=== PATIENT | male | born 1980 | race African-American/Black ===

== ENCOUNTER 2018-05-09 16:40 | Inpatient (IN) | payer BC, OTHER ==
[~2018-05-09] VITALS: Ht 172.7 cm; Wt 98.9 kg
[2018-05-09] MEDS ORDERED: MAG HYDROX/AL HYDROX/SIMETH 30 ML LIQUID UDC PO PRN (17:15)
[2018-05-09] MEDS ORDERED: LOPERAMIDE HCL 2 MG CAPSULE PO PRN ×2 (17:15)
[2018-05-09] MEDS ORDERED: DIAZEPAM 10 MG TABLET PO PRN (17:15)
[2018-05-09] MEDS ORDERED: ONDANSETRON 4 MG/2 ML VIAL IM PRN (17:15)
[2018-05-09] MEDS ORDERED: DIAZEPAM 5 MG TABLET PO PRN (17:15)
[2018-05-09] MEDS ORDERED: MIRALAX 17 GM POWD.PACK PO PRN (17:15)
[2018-05-09] MEDS ORDERED: MAGNESIUM HYDROXIDE 30 ML LIQUID UDC PO PRN (17:15)
[2018-05-09] MEDS ORDERED: THIAMINE HCL 200 MG/2 ML VIAL IM ONE (17:15)
[2018-05-09] MEDS ORDERED: 5 DAY TAPER VALIUM-SERENITY PROTOCOL PO PRN (17:15)
[2018-05-09] MEDS ORDERED: LORAZEPAM 2 MG/1 ML VIAL IM PRN (17:15)
[2018-05-09 17:48] LABS: *AMPHETAMINE, URINE NEGATIVE (NEGATIVE); *BARBITURATE, URINE NEGATIVE (NEGATIVE); *CANNABINOID, URINE NEGATIVE (NEGATIVE); *COCCAINE, URINE NEGATIVE (NEGATIVE); *OPIATE, URINE NEGATIVE (NEGATIVE); *PHENCYCLIDINE SCREEN,URINE NEGATIVE (NEGATIVE)
[2018-05-09] MEDS ORDERED: CARV12.52 PO (17:51)
[2018-05-09] MEDS ORDERED: OXYM15MI4 NS (17:53)
[2018-05-09 18:34] LABS: BASOPHILS # (AUTO) 0.1 K/uL (0.0-8.0); BASOPHILS % (AUTO) 0.9 % (0.0-2.0); EOSINOPHILS % (AUTO) 0.4 % (0.0-7.0); HEMATOCRIT 46.6 % (36.7-47.1); HEMOGLOBIN 15.7 g/dL (12.5-16.3); LYMPHOCYTES # (AUTO) 1.9 K/uL (20.0-40.0); MEAN CORPUSCULAR HEMOGLOBIN 28.3 uug (23.8-33.4); MEAN CORPUSCULAR HGB CONC 34 g/dL (32.5-36.3); MEAN CORPUSCULAR VOLUME 84.4 fL (73.0-96.2); MONOCYTES # (AUTO) 0.4 K/uL (2.0-10.0); MONOCYTES % (AUTO) 5.9 % (0.0-11.0); NEUTROPHILS # (AUTO) 4.4 K/uL (1.8-8.9); NEUTROPHILS % (AUTO) 64.8 % (38.5-71.5); PLATELET COUNT (AUTO) 295 K/uL (152-348); RED BLOOD CELL COUNT(AUTO) 5.52 MIL/uL (4.06-5.63); WHITE BLOOD COUNT (AUTO) 6.8 K/uL (3.6-10.2)
[2018-05-09 18:49] LABS: BILIRUBIN,TOTAL 0.7 mg/dL (0.2-1.0); CREATININE 0.9 mg/dL (0.6-1.3); MAGNESIUM 2.1 mg/dL (1.8-2.4); POTASSIUM 3.9 mmol/L (3.5-5.1); TOTAL PROTEIN, SERUM 8.2 g/dL (6.4-8.2)
[2018-05-09 20:00] VITALS: BP 136/85
[2018-05-09] MEDS: DIAZEPAM 10 MG TABLET PO PRN (20:21)
[2018-05-09] MEDS: diphenhydrAMINE 50 MG CAPSULE PO PRN (20:21)
[2018-05-09] MEDS: CARVEDILOL 12.5 MG TABLET PO SCH (20:34)
[2018-05-09] MEDS: ONDANSETRON ODT 4 MG TAB.RAPDIS SL PRN (21:14)
[2018-05-09] MEDS: OXYMETAZOLINE NS PRN (21:15)
[2018-05-10] VITALS: BP 127/78
[2018-05-10 04:00] VITALS: BP 94/57
[2018-05-10] MEDS: IBUPROFEN 600 MG TABLET PO PRN ×2 (08:23→15:09)
[2018-05-10] MEDS: FOLIC ACID 1 MG TABLET PO SCH (08:23)
[2018-05-10] MEDS: ONDANSETRON ODT 4 MG TAB.RAPDIS SL PRN ×2 (08:23→15:10)
[2018-05-10] MEDS: MULTIVITAMINS,THERAPEUTIC TABLET PO SCH (08:23)
[2018-05-10] MEDS: THIAMINE HCL 100 MG TABLET PO SCH (08:23)
[2018-05-10] MEDS: DIAZEPAM 10 MG TABLET PO SCH ×4 (08:24→20:13)
[2018-05-10] MEDS: CARVEDILOL 12.5 MG TABLET PO SCH ×2 (08:27→17:36)
[2018-05-10] MEDS ORDERED: DICYCLOMINE HCL 10 MG CAPSULE PO PRN (08:30)
[2018-05-10 08:40] VITALS: BP 140/96
[2018-05-10] MEDS ORDERED: TUBERCULIN,PURIF.PROT.DERIV. 5 TU/0.1 ML TEST ID ONE (09:00)
[2018-05-10] MEDS: OXYMETAZOLINE NS PRN (10:32)
[2018-05-10] MEDS: DIAZEPAM 10 MG TABLET PO PRN (10:52)
[2018-05-10] MEDS: CLONIDINE HCL 0.1 MG TABLET PO PRN ×2 (11:02→20:14)
[2018-05-10 12:31] VITALS: BP 141/86
[2018-05-10] MEDS ORDERED: OXYMETAZOLINE NASAL SPRAY NS PRN (13:15)
[2018-05-10] MEDS: ACETAMINOPHEN 325 MG TABLET PO PRN (15:09)
[2018-05-10] MEDS ORDERED: METHOCARBAMOL 750 MG TABLET PO PRN (15:15)
[2018-05-10 16:10] VITALS: BP 146/85
[2018-05-10 20:00] VITALS: BP 147/88
[2018-05-10] MEDS: diphenhydrAMINE 50 MG CAPSULE PO PRN (20:14)
[2018-05-10] MEDS: OXYMETAZOLINE NASAL 0.05% 15 ML SPRAY NS PRN (20:15)
[2018-05-10] MEDS ORDERED: DIAZEPAM 10 MG TABLET PO PRN ×2 (20:45)
[2018-05-10] MEDS ORDERED: DIAZEPAM 5 MG TABLET PO PRN (20:45)
[2018-05-11] VITALS: BP 132/82
[2018-05-11 04:00] VITALS: BP 132/79
[2018-05-11] MEDS: OXYMETAZOLINE NASAL 0.05% 15 ML SPRAY NS PRN ×4 (04:31→16:25)
[2018-05-11 06:06] LABS: HEPATITIS B SURFACE AG Negative (Negative)
[2018-05-11 08:02] VITALS: BP 126/83
[2018-05-11] MEDS: MULTIVITAMINS,THERAPEUTIC TABLET PO SCH (09:04)
[2018-05-11] MEDS: THIAMINE HCL 100 MG TABLET PO SCH (09:04)
[2018-05-11] MEDS: DIAZEPAM 10 MG TABLET PO SCH ×3 (09:04→21:06)
[2018-05-11] MEDS: CARVEDILOL 12.5 MG TABLET PO SCH ×2 (09:05→17:09)
[2018-05-11] MEDS: FOLIC ACID 1 MG TABLET PO SCH (09:05)
[2018-05-11 12:00] VITALS: BP 132/95
[2018-05-11 13:15] LABS: BILIRUBIN,TOTAL 0.9 mg/dL (0.2-1.0); POTASSIUM 3.7 mmol/L (3.5-5.1); TOTAL PROTEIN, SERUM 7.6 g/dL (6.4-8.2)
[2018-05-11 16:00] VITALS: BP 141/106
[2018-05-11 20:00] VITALS: BP 129/80
[2018-05-11] MEDS: ONDANSETRON ODT 4 MG TAB.RAPDIS SL PRN (20:25)
[2018-05-11] MEDS: TRAZODONE 50 MG TABLET PO PRN (21:06)
[2018-05-12] VITALS: BP 138/83
[2018-05-12 08:15] LABS: ALANINE AMINOTRANSFERASE 229 U/L (16-63); ALKALINE PHOSPHATASE 71 U/L (50-136); AMYLASE 35 U/L (25-115); ASPARTATE AMINOTRANSFERASE 179 U/L (15-37); BILIRUBIN,DIRECT 0.2 mg/dL (0.0-0.2); BILIRUBIN,TOTAL 0.8 mg/dL (0.2-1.0); CARBON DIOXIDE 28 mmol/L (21-32); CHLORIDE 101 mmol/L (98-107); CREATININE 0.7 mg/dL (0.6-1.3); GLUCOSE 96 mg/dL (74-106); LIPASE 349 U/L (73-393); TOTAL PROTEIN, SERUM 7.1 g/dL (6.4-8.2); UREA NITROGEN, BLOOD 6 mg/dL (7-18)
[2018-05-12 08:17] VITALS: BP 111/77
[2018-05-12] MEDS ORDERED: POTASSIUM CHLORIDE 20 MEQ TAB.PRT.SR PO ONE (09:00)
[2018-05-12] MEDS: MULTIVITAMINS,THERAPEUTIC TABLET PO SCH (09:22)
[2018-05-12] MEDS: THIAMINE HCL 100 MG TABLET PO SCH (09:22)
[2018-05-12] MEDS: FOLIC ACID 1 MG TABLET PO SCH (09:22)
[2018-05-12] MEDS: CARVEDILOL 12.5 MG TABLET PO SCH ×2 (09:22→16:38)
[2018-05-12] MEDS: DIAZEPAM 5 MG TABLET PO SCH ×4 (09:22→21:37)
[2018-05-12] MEDS: OXYMETAZOLINE NASAL 0.05% 15 ML SPRAY NS PRN ×3 (09:24→22:01)
[2018-05-12] MEDS: CLONIDINE HCL 0.1 MG TABLET PO PRN ×2 (12:09→20:27)
[2018-05-12 12:41] VITALS: BP 149/108
[2018-05-12 16:40] VITALS: BP 149/106
[2018-05-12 20:00] VITALS: BP 142/110
[2018-05-12] MEDS: IBUPROFEN 600 MG TABLET PO PRN (20:27)
[2018-05-12] MEDS: TRAZODONE 50 MG TABLET PO PRN (21:37)
[2018-05-13] VITALS: BP 118/79
[2018-05-13 04:00] VITALS: BP 95/60
[2018-05-13 08:00] VITALS: BP 107/71
[2018-05-13 08:28] LABS: ALANINE AMINOTRANSFERASE 280 U/L (16-63); ALKALINE PHOSPHATASE 71 U/L (50-136); ASPARTATE AMINOTRANSFERASE 193 U/L (15-37); BILIRUBIN,DIRECT 0.2 mg/dL (0.0-0.2); BILIRUBIN,TOTAL 0.6 mg/dL (0.2-1.0); CARBON DIOXIDE 28 mmol/L (21-32); CHLORIDE 101 mmol/L (98-107); CREATININE 0.8 mg/dL (0.6-1.3); GLUCOSE 126 mg/dL (74-106); MAGNESIUM 1.9 mg/dL (1.8-2.4); TOTAL PROTEIN, SERUM 6.9 g/dL (6.4-8.2); UREA NITROGEN, BLOOD 5 mg/dL (7-18)
[2018-05-13] MEDS ORDERED: POTASSIUM CHLORIDE 20 MEQ TAB.PRT.SR PO ONE (09:00)
[2018-05-13] MEDS: CARVEDILOL 12.5 MG TABLET PO SCH ×2 (09:07→16:56)
[2018-05-13] MEDS: MULTIVITAMINS,THERAPEUTIC TABLET PO SCH (09:07)
[2018-05-13] MEDS: FOLIC ACID 1 MG TABLET PO SCH (09:07)
[2018-05-13] MEDS: THIAMINE HCL 100 MG TABLET PO SCH (09:07)
[2018-05-13] MEDS: DIAZEPAM 5 MG TABLET PO SCH ×3 (09:07→21:19)
[2018-05-13] MEDS: OXYMETAZOLINE NASAL 0.05% 15 ML SPRAY NS PRN ×3 (09:08→21:20)
[2018-05-13 12:00] VITALS: BP 145/103
[2018-05-13] MEDS: ONDANSETRON ODT 4 MG TAB.RAPDIS SL PRN (15:06)
[2018-05-13 16:00] VITALS: BP 121/96
[2018-05-13] MEDS: busPIRone 5 MG TABLET PO SCH (16:56)
[2018-05-13 20:00] VITALS: BP 136/102
[2018-05-13] MEDS: TRAZODONE 50 MG TABLET PO PRN (21:20)
[2018-05-13] MEDS: CLONIDINE HCL 0.1 MG TABLET PO PRN (21:20)
[2018-05-14] VITALS: BP 101/73
[2018-05-14 04:00] VITALS: BP 109/69
[2018-05-14 08:00] VITALS: BP 93/66
[2018-05-14] MEDS: THIAMINE HCL 100 MG TABLET PO SCH (08:33)
[2018-05-14] MEDS: FOLIC ACID 1 MG TABLET PO SCH (08:33)
[2018-05-14] MEDS: MULTIVITAMINS,THERAPEUTIC TABLET PO SCH (08:33)
[2018-05-14] MEDS: OXYMETAZOLINE NASAL 0.05% 15 ML SPRAY NS PRN ×3 (08:34→22:26)
[2018-05-14] MEDS: DIAZEPAM 5 MG TABLET PO SCH ×2 (08:34→21:37)
[2018-05-14] MEDS: CARVEDILOL 12.5 MG TABLET PO SCH ×2 (08:45→16:51)
[2018-05-14] MEDS: busPIRone 5 MG TABLET PO SCH ×2 (08:45→12:40)
[2018-05-14 09:00] LABS: BILIRUBIN,TOTAL 0.4 mg/dL (0.2-1.0); CREATININE 0.9 mg/dL (0.6-1.3); POTASSIUM 3.6 mmol/L (3.5-5.1); TOTAL PROTEIN, SERUM 6.8 g/dL (6.4-8.2)
[2018-05-14 12:00] VITALS: BP 132/90
[2018-05-14 16:00] VITALS: BP 148/99
[2018-05-14] MEDS: busPIRone 10 MG TABLET PO SCH (16:50)
[2018-05-14] MEDS ORDERED: busPIRone 5 MG TABLET PO SCH (17:00)
[2018-05-14 20:00] VITALS: BP 132/99
[2018-05-14] MEDS: TRAZODONE 50 MG TABLET PO PRN (21:37)
[2018-05-15] VITALS: BP 129/89
[2018-05-15 04:00] VITALS: BP 131/80
[2018-05-15 08:00] VITALS: BP 115/81
[2018-05-15] MEDS: busPIRone 10 MG TABLET PO SCH ×3 (08:24→16:35)
[2018-05-15] MEDS: MULTIVITAMINS,THERAPEUTIC TABLET PO SCH (08:24)
[2018-05-15] MEDS: FOLIC ACID 1 MG TABLET PO SCH (08:24)
[2018-05-15] MEDS: CARVEDILOL 12.5 MG TABLET PO SCH ×2 (08:24→16:35)
[2018-05-15] MEDS: THIAMINE HCL 100 MG TABLET PO SCH (08:24)
[2018-05-15 12:00] VITALS: BP 140/96
[2018-05-15 16:00] VITALS: BP 142/98
[2018-05-15] MEDS: OXYMETAZOLINE NASAL 0.05% 15 ML SPRAY NS PRN ×2 (16:38→21:32)
[2018-05-15] MEDS: ACETAMINOPHEN 325 MG TABLET PO PRN (19:33)
[2018-05-15] MEDS: CLONIDINE HCL 0.1 MG TABLET PO PRN (19:34)
[2018-05-15 20:00] VITALS: BP 137/103
[2018-05-15] MEDS ORDERED: TRAZ-213 PO (20:41)
[2018-05-15] MEDS ORDERED: OXYM-35 NS (20:41)
[2018-05-15] MEDS ORDERED: BUSP10TA3 PO (20:41)
[2018-05-15] MEDS: TRAZODONE 50 MG TABLET PO PRN (21:30)
[2018-05-16] VITALS: BP 128/96
[2018-05-16 04:00] VITALS: BP 125/80
[2018-05-16 08:00] VITALS: BP 100/63
[2018-05-16 08:15] VITALS: BP 100/63
[2018-05-16] MEDS: OXYMETAZOLINE NASAL 0.05% 15 ML SPRAY NS PRN (08:15)
[2018-05-16] MEDS: THIAMINE HCL 100 MG TABLET PO SCH (08:15)
[2018-05-16] MEDS: CARVEDILOL 12.5 MG TABLET PO SCH (08:15)
[2018-05-16] MEDS: busPIRone 10 MG TABLET PO SCH (08:15)
[2018-05-16] MEDS: MULTIVITAMINS,THERAPEUTIC TABLET PO SCH (08:15)
[2018-05-16] MEDS: FOLIC ACID 1 MG TABLET PO SCH (09:34)
== END 2018-05-16 09:29 | disposition other institution (70) | DRG 895 ==
LOC: SRC 16:40
PROVIDERS: ADMIT Family Medicine Addiction Medicine; ATTEND Family Medicine Addiction Medicine
PROC: HZ2ZZZZ Detoxification Services for Substance Abuse Treatment (ICD-10-PCS; principal; 2018-05-09)
PROC: HZ41ZZZ Group Counseling for Substance Abuse Treatment, Behavioral (ICD-10-PCS; 2018-05-12)
DX: F10.239 Alcohol dependence with withdrawal, unspecified (principal); F10.230 Alcohol dependence with withdrawal, uncomplicated; F17.210 Nicotine dependence, cigarettes, uncomplicated; Z81.1 Family history of alcohol abuse and dependence; J31.0 Chronic rhinitis; I10 Essential (primary) hypertension; F41.9 Anxiety disorder, unspecified; Z81.3 Family history of other psychoactive substance abuse and dependence; E87.6 Hypokalemia; F32.9 Major depressive disorder, single episode, unspecified; R74.0 Nonspecific elevation of levels of transaminase and lactic acid dehydrogenase [LDH]
CPT/HCPCS: 36415; 70030-TC; 80307; 83690; 83735; 85025; 86580; 86592; 86705; 86803; 87340; 87806; A4663; G0480; J2405; Q0162; Q0163

== ENCOUNTER 2018-08-21 19:35 | Inpatient (IN) | payer BC, OTHER ==
[~2018-08-21] VITALS: Ht 167.6 cm; Wt 99.8 kg
[~2018-08-21 19:35] MED LIST: BUSP10TA3 PO; CARV12.52 PO; OXYM-35 NS; TRAZ-213 PO
--- NOTE | 2018-08-21 21:30 | NUR ---
INTAKE ASSESSMENT BP:180/104, HR:106, RR:18, SpO2:96% Pt is stable and able to be admitted on the unit. Unit protocols regarding medications and vital signs Q4H were explained. Pt verbalized understanding. Pt noted with abrasion/open skin to left side of face. Pt reports he lost his balance and scraped his face against the wall. Denies falling, denies loss of consciousness. Pt is alert and oriented x4. Dr. Leos was notified. Will continue admission upon arrival on the unit.
[2018-08-21] MEDS ORDERED: GABA600T2 PO (21:43)
[2018-08-21] MEDS ORDERED: TRAZ-214 PO (21:43)
[2018-08-21] MEDS ORDERED: ONDA4TAB5 GT (21:43)
[2018-08-21] MEDS ORDERED: GABA-534 PO (21:43)
[2018-08-21] MEDS ORDERED: NYST15OI2 TP (21:43)
--- NOTE | 2018-08-21 22:00 | NUR ---
Admission Patient is a 38 year old male who present to [facility] for medically supervised withdrawal from ETOH- Vodka. Patient was escorted on to the unit at 2140 by male HYDROELECTRIC STATION OPERATOR where body search was conducted. Skin check rendered by male nurse with skin noted with an abrasion to left side of face. Patient was able to verbalize "I missed the step when I was drunk and hit the wall outside of my house." He explained that he did not lose consciousness and denies change in LOC. Patient is ambulatory with no assistance needed. He is noted to be anxious, restless, easily agitated, verbalizing chills and sweats, and tremulous. He is noted with heavy alcohol odor. He is noted during admission assessment to be very fidgety, anxious, racing thoughts, blunt answers and verbalizing gosh just look at me Im a mess. This isnt me. He is alert and oriented x4, speech is clear but pressured and delayed. He is noted to avoid eye contact. He reports his substance use as: 1. ETOH-VODKA: Patient verbalizes of taking his first drink over 24 years ago. He recently relapsed 6 days ago, drinking 750mls daily. He reports his last drink was 08/21/18 1800 drinking 60mls. Patient reports typical signs and symptoms of withdrawal as "shakes, sweats, vomiting, diarrhea, my stomach hurts, irritable." When asked of his current state of intoxication patient states I dont know what I feel. I feel like shit like Im starting to feel like Im hung over. Patient denies history of seizures, withdrawal induced delirium, withdrawal induced cardiac complications, overdoses, involuntary psych hospitalizations. Patient reports history of multiple blackouts and states I drink to blackout. He denies PCP or Psychiatrist. He reports past medical history of HTN and is currently taking Carvedilol 12.5mg, Anxiety and is prescribed Neurontin 600mg, Insomnia and is currently prescribed trazodone 100mg. patient denies diagnosis of depression but was noted with home medication of Wellbutrin 10mg. Patient states I was given all those meds when I was at treatment. The only one that I consistently take is my blood pressure medication. The others are just there. Patient denies suicidal ideations. He reports of multiple treatment history with the most recent to [facility] where he completed 30 days. Patient reports his recent relapse due to complications to between him and his . Patient states She was just ignoring me and it made things difficult. He also reports that his triggers consist of his consuming alcohol on a daily bases at home and with alcohol available in their home it makes the temptation greater. He states she leaves her drinks out and I just end up drinking them. Thats how all this started. Patient decided to get treatment because "I just cant keep going on like this. Look at me Im a mess. Patient goes on to report I want to be a good dad to my kids. His support system consists of his immediate family and sober friends. Consequences from his drinking include financial hardship as well as causing strain on his family and close relationships. Patient is willing to receive information on residential treatment but states Im not planning on going to residential treatment. I know what to do. I just need to do it. Vital signs rendered and noted. Breathing even and non labored. Lung sounds clear. Bowel sounds active in all quadrants. Patient follows a regular diet. No known allergies. Full code. Height noted 56. Weight 220lbs. Smoking approximately 20 cigarettes a day. Educated patient about plan of care including detox, group therapy, individual therapy, discharge planning and he was able to verbalize understanding. Admission CIWA 23. All information was relayed to CA and MD with new orders to start patient on a 5 day Valium that is set to start 08/22/18 0900. PRN medications available for increased signs and symptoms of withdrawal. Labs ordered and rendered. All needs attended to promptly. Will continue plan of care as ordered.
[2018-08-21] MEDS ORDERED: IBUPROFEN 600 MG TABLET PO PRN (22:15)
[2018-08-21] MEDS ORDERED: LOPERAMIDE HCL 2 MG CAPSULE PO PRN (22:15)
[2018-08-21] MEDS ORDERED: diphenhydrAMINE 50 MG CAPSULE PO PRN (22:15)
[2018-08-21] MEDS ORDERED: MAG HYDROX/AL HYDROX/SIMETH 30 ML LIQUID UDC PO PRN (22:15)
[2018-08-21] MEDS ORDERED: DIAZEPAM 10 MG TABLET PO PRN (22:15)
[2018-08-21] MEDS ORDERED: MAGNESIUM HYDROXIDE 30 ML LIQUID UDC PO PRN (22:15)
[2018-08-21] MEDS ORDERED: HYDROXYZINE PAMOATE 25 MG CAPSULE PO PRN (22:15)
[2018-08-21] MEDS ORDERED: ONDANSETRON 4 MG/2 ML VIAL IM PRN (22:15)
[2018-08-21] MEDS ORDERED: THIAMINE HCL 200 MG/2 ML VIAL IM ONE (22:15)
[2018-08-21] MEDS ORDERED: ONDANSETRON ODT 4 MG TAB.RAPDIS SL PRN (22:15)
[2018-08-21] MEDS ORDERED: DIAZEPAM 5 MG TABLET PO PRN (22:15)
[2018-08-21] MEDS ORDERED: LORAZEPAM 2 MG/1 ML VIAL IM PRN (22:15)
[2018-08-21 22:16] VITALS: BP 153/110
[2018-08-21] MEDS: CLONIDINE HCL 0.1 MG TABLET PO PRN (22:36)
--- NOTE | 2018-08-21 22:40 | NUR ---
PRN Medication Administration Patient is noted with increased anxiety, restlessness, agitation, chills, sweats, tremulous, light sensitivity. He is noted pacing in and out of room and frequently shifting in position. CIWA noted to be 23. PRN Clonidine administered for elevated blood pressure and Valium 20mg administered. Will continue to monitor.
[2018-08-21 23:04] LABS: BASOPHILS # (AUTO) 0.1 K/uL (0.0-8.0); BASOPHILS % (AUTO) 0.6 % (0.0-2.0); EOSINOPHILS % (AUTO) 0.2 % (0.0-7.0); HEMATOCRIT 44.7 % (36.7-47.1); HEMOGLOBIN 15.4 g/dL (12.5-16.3); LYMPHOCYTES # (AUTO) 2.4 K/uL (20.0-40.0); MEAN CORPUSCULAR HEMOGLOBIN 28.8 uug (23.8-33.4); MEAN CORPUSCULAR HGB CONC 35 g/dL (32.5-36.3); MEAN CORPUSCULAR VOLUME 83.5 fL (73.0-96.2); MONOCYTES # (AUTO) 0.8 K/uL (2.0-10.0); MONOCYTES % (AUTO) 9.6 % (0.0-11.0); NEUTROPHILS # (AUTO) 5.2 K/uL (1.8-8.9); NEUTROPHILS % (AUTO) 61.6 % (38.5-71.5); PLATELET COUNT (AUTO) 246 K/uL (152-348); RED BLOOD CELL COUNT(AUTO) 5.35 MIL/uL (4.06-5.63); WHITE BLOOD COUNT (AUTO) 8.5 K/uL (3.6-10.2)
[2018-08-21 23:18] LABS: BILIRUBIN,TOTAL 0.6 mg/dL (0.2-1.0); MAGNESIUM 1.8 mg/dL (1.8-2.4); POTASSIUM 3.6 mmol/L (3.5-5.1); TOTAL PROTEIN, SERUM 7.9 g/dL (6.4-8.2)
--- NOTE | 2018-08-21 23:40 | NUR ---
PRN Medication Reassessment patient is noted returning from smoking patio and verbalizes "Im going to go to bed." Vitals rendered and noted. PRN Clonidine and Valium 20mg noted to be effective. Will continue to monitor.
[2018-08-21 23:46] LABS: *AMPHETAMINE, URINE NEGATIVE (NEGATIVE); *BARBITURATE, URINE NEGATIVE (NEGATIVE); *CANNABINOID, URINE NEGATIVE (NEGATIVE); *COCCAINE, URINE NEGATIVE (NEGATIVE); *OPIATE, URINE NEGATIVE (NEGATIVE); *PHENCYCLIDINE SCREEN,URINE NEGATIVE (NEGATIVE)
[2018-08-21 23:51] LABS: THYROID STIMULATING HORMONE 1.143 mIU/mL (0.358-3.740)
[2018-08-22] VITALS (7 sets, daily range): BP systolic 110–151; BP diastolic 67–93
[2018-08-22] MEDS: DIAZEPAM 10 MG TABLET PO PRN ×2 (06:37→12:16)
--- NOTE | 2018-08-22 06:40 | NUR ---
PRN Medication Administration Patient is noted awake and verbalizing increased anxiety, restlessness, increased sweats and chills, agitation, and pain due to headache. CIWA noted to be 10. PRN Valium 10mg and Motrin 600mg administered. Will continue to monitor.
--- NOTE | 2018-08-22 07:20 | NUR ---
End of Shift Patient is noted in bed awake alert and verbally responsive. Breathing even and non labored. Patient is set to start a 5 day Valium taper this morning 0900. PRN Valium 20mg and Clonidine administered with medication noted to be effective. Patient noted to sleep a total 5 hours. Last noted CIWA 10 at 0640 with PRN Valium 10mg and PRN Motrin administered. All needs attended to promptly. Will endorse to continue plan of care as ordered.
--- NOTE | 2018-08-22 07:47 | NUR ---
BEGINNING OF SHIFT Patient endorsement report received from circus roustabout nurse, all pertinent information was discussed. Patient with admitting dx: etoh withdrawal, as per circus roustabout, relapsed 6 days ago. Patient continues under close observation. Patient is scheduled to begin a 5 day valium taper as ordered. Received PRN: Clonidine, Valium, and Motrin. Slept for 5 hours. Last CIWA score of: 10. Patient received awake, alert and oriented x4, educated regarding plan of care for the day and medication regimen, with good verbal understanding. Safety measures are in place. call light kept with in reach, will continue to monitor.
[2018-08-22] MEDS: MULTIVITAMINS,THERAPEUTIC TABLET PO SCH (08:17)
[2018-08-22] MEDS: THIAMINE HCL 100 MG TABLET PO SCH (08:18)
[2018-08-22] MEDS: DIAZEPAM 10 MG TABLET PO SCH ×3 (08:18→23:00)
[2018-08-22] MEDS: FOLIC ACID 1 MG TABLET PO SCH (08:18)
--- NOTE | 2018-08-22 08:55 | NUR ---
CIWA ASSESSMENT Patient was noted exhibiting the following s/sx of withdrawal during shift: tremors that can be felt, mild diaphoresis, increased anxiety, increased agitation, depression, difficulty concentrating, emotional volatility, generalized discomfort, hypervigilance, increased emotional amplitude, increased startle response, and mild head fullness with current CIWA score of: 12, first dose of Valium administered as ordered.
[2018-08-22] MEDS ORDERED: 5 DAY TAPER VALIUM-SERENITY PROTOCOL PO PRN (09:00)
[2018-08-22] MEDS ORDERED: TUBERCULIN,PURIF.PROT.DERIV. 5 TU/0.1 ML TEST ID ONE (09:00)
[2018-08-22] MEDS: CLONIDINE HCL 0.1 MG TABLET PO PRN (10:32)
--- NOTE | 2018-08-22 10:32 | NUR ---
PRN CLONIDINE/VISTARIL Patient noted with increase in anxiety/agitation, noted pacing in room, and wringing hands, provided patient with non pharmacological interventions with no relief, administered Vistaril as ordered and clonidine as ordered, will continue to monitor.
--- NOTE | 2018-08-22 11:32 | NUR ---
CLONIDINE/VISTARIL REASSESSMENT Patient reports medication effective, and feeling less anxious. Safety measures in place. Will continue to monitor.
[2018-08-22] MEDS: OXYMETAZOLINE NASAL 0.05% 15 ML SPRAY NS PRN (12:04)
[2018-08-22] MEDS: CARVEDILOL 12.5 MG TABLET PO SCH ×2 (12:16→17:06)
--- NOTE | 2018-08-22 12:16 | NUR ---
CIWA ASSESSMENT/PRN VALIUM Patient was noted exhibiting the following s/sx of withdrawal during shift: tremors that can be felt, mild diaphoresis, increased anxiety, increased agitation, depression, difficulty concentrating, emotional volatility, generalized discomfort, hypervigilance, increased emotional amplitude, increased startle response, and mild head fullness with current CIWA score of: 12, Administered Valium 10mg as ordered, for s/sx of withdrawal, will continue to monitor.
--- NOTE | 2018-08-22 13:16 | NUR ---
VALIUM REASSESSMENT medication effective, patient verbalized feeling less anxious/agitated, current CIWA score of: 10, will continue to monitor.
[2018-08-22] MEDS ORDERED: TRAZODONE 100 MG TABLET PO PRN (14:30)
--- NOTE | 2018-08-22 17:10 | NUR ---
CIWA ASSESSMENT Patient continues to present with the following s/sx of withdrawal during shift: tremors that can be felt, mild diaphoresis, increased anxiety, increased agitation, depression, difficulty concentrating, emotional volatility, generalized discomfort, hypervigilance, increased emotional amplitude, increased startle response, and mild head fullness with current CIWA score of: 12, will continue to monitor.
--- NOTE | 2018-08-22 19:14 | NUR ---
END OF SHIFT Patient alert and oriented x4, continues under observation. Patient with admitting Dx: etoh withdrawal, patient began a 5 day Valium taper as ordered during shift, medication administered as ordered. Continues under close observation. Patient appears disheveled, unkempt, unshaven and odorous. Noted with inability to perform ADLs without prompting. Patient has angry and irritable facial expression with avoidant eye contact. Noted easily overwhelmed, with agitated affect. Noted with anxious/agitated mood. Encouraged patient to self groom and maintance of personal space. Encouraged utilization of non pharmacological interventions as needed. Patient was noted exhibiting the following s/sx of withdrawal during shift: tremors that can be felt, mild diaphoresis, increased anxiety, increased agitation, depression, difficulty concentrating, emotional volatility, generalized discomfort, hypervigilance, increased emotional amplitude, increased startle response, and mild head fullness with last CIWA score of: 12. Patient received PRN: Vistaril 10mg x1, Afrin, Clonidine and Vistaril during shift, medications were effective. Encouraged to attend group therapies/sessions to learn new coping skills to prevent relapsed, denies SI/HI. Safety measures in place, patient endorsed to assistant casino shift manager nurse, all pertinent information was discussed.
--- NOTE | 2018-08-22 19:30 | NUR ---
Start of Shift Patient Received. Patient continues on a modified 5 day Valium taper. Patient received PRN Valium 10mg, Clonidine, Vistaril, and Afrin. Last noted CIWA 12. Upon rounds patient is noted to be disheveled, unshaven and odorous. He is noted to be primarily focused on medications and his next dose. He is noted in bed verbalizing increased anxiety, irritability, and restlessness. Patient was encouraged to attend group but patient refused and states nah Im cool. Reviewed 2100 medications with patient and he verbalized understanding. All needs attended to promptly. Will continue plan of care as ordered.
--- NOTE | 2018-08-22 20:00 | NUR ---
CIWA Assessment patient is continues to be monitored for increased anxiety, agitation, intermittent chills and sweats, restlessness, light sensitivity, and tremulous. Will administer medications as ordered.
--- NOTE | 2018-08-23 00:20 | NUR ---
CIWA and Vitals Patient is noted in bed in bed with eyes closed. Breathing even and non labored. No restlessness or discomfort noted. Vitals Refused. CIWA not able to be completed as per order. Will continue to monitor.
--- NOTE | 2018-08-23 04:10 | NUR ---
CIWA and Vitals Patient is noted in bed with eyes closed. Breathing even and non labored. No signs of facial grimacing or restlessness. Vitals refused. CIWA not able to be completed as per order. Will continue to monitor.
--- NOTE | 2018-08-23 07:19 | NUR ---
End of Shift Patient is in bed with eyes closed. Breathing even and non labored. Patient continues on a 5 day Valium taper. Patient continues to be monitored for increased signs and symptoms of withdrawal. He is able to verbalize that taper medications have been effective in minimizing signs and symptoms of withdrawal. No PRN medications administered. Patient noted to sleep a total of 9 hours. Last noted CIWA 15. Patient is noted with increased anxiety, irritability, and restlessness. All needs attended to promptly. Will endorse to continue plan of care as ordered.
--- NOTE | 2018-08-23 07:49 | NUR ---
BEGINNING OF SHIFT Patient continues under close observation, admitting Dx: etoh withdrawal, with patient endorsement report received from warehouse worker 2nd shift nurse, all pertinent information was discussed. Patient continues with ongoing 5 day Valium taper as ordered, is scheduled to begin day 2 of taper. Per warehouse worker 2nd shift Received no PRN medications. Slept for 9 hours. Last CIWA score of: 15. Patient received awake, alert and oriented x4, educated regarding plan of care for the day and medication regimen, with good verbal understanding. Safety measures are in place. call light kept with in reach, will continue to monitor.
[2018-08-23 08:38] VITALS: BP 128/84
[2018-08-23] MEDS: THIAMINE HCL 100 MG TABLET PO SCH (08:50)
[2018-08-23] MEDS: MULTIVITAMINS,THERAPEUTIC TABLET PO SCH (08:50)
[2018-08-23] MEDS: FOLIC ACID 1 MG TABLET PO SCH (08:50)
[2018-08-23] MEDS: DIAZEPAM 5 MG TABLET PO SCH ×4 (08:51→21:00)
--- NOTE | 2018-08-23 09:12 | NUR ---
CIWA ASSESSMENT Patient was noted exhibiting the following s/sx of withdrawal during shift: tremors that can be felt, mild diaphoresis, increased anxiety, increased agitation, depression, difficulty concentrating, emotional volatility, generalized discomfort, and increased emotional amplitude, Current CIWA score of: 11. Will continue to monitor.
[2018-08-23] MEDS: CARVEDILOL 12.5 MG TABLET PO SCH ×2 (09:45→17:18)
--- NOTE | 2018-08-23 10:40 | NUR ---
Therapist prompted client to attend group therapy.
[2018-08-23 11:13] LABS: HEPATITIS B SURFACE AG Negative (Negative)
[2018-08-23 12:37] VITALS: BP 147/101
[2018-08-23] MEDS: CLONIDINE HCL 0.1 MG TABLET PO PRN (12:40)
--- NOTE | 2018-08-23 12:40 | NUR ---
PRN CLONIDINE BP: 147/101 HR: 83, Administered Clonidine as ordered, will monitor effectiveness.
--- NOTE | 2018-08-23 13:00 | NUR ---
CIWA ASSESSMENT Patient continues to exhibit the following s/sx of withdrawal during shift:emotional volatility, mild diaphoresis, increased anxiety, increased agitation, depression, difficulty concentrating, tremors that can be felt, generalized discomfort, and increased emotional amplitude, Current CIWA score of: 11. Will continue to monitor.
--- NOTE | 2018-08-23 13:40 | NUR ---
CLONIDINE REASSESSMENT Medication effective, BP: 146/99 hr: 80, will continue to monitor.
[2018-08-23] MEDS: OXYMETAZOLINE NASAL 0.05% 15 ML SPRAY NS PRN (14:43)
[2018-08-23 17:14] VITALS: BP 156/98
--- NOTE | 2018-08-23 17:39 | NUR ---
CIWA ASSESSMENT Continues to present with:emotional volatility, mild diaphoresis, increased anxiety, increased agitation, depression, difficulty concentrating, tremors that can be felt, generalized discomfort, and increased emotional amplitude, Current CIWA score of: 11. Will continue to monitor. Safety measures in place.
--- NOTE | 2018-08-23 19:13 | NUR ---
END OF SHIFT Patient continues under close observation, patient alert and oriented x4, ongoing Valium taper as ordered, currently on day 2 of taper. Noted with avoidant eye contact and easily overwhelmed, with agitated affect. Has an anxious/agitated mood. Patient was noted exhibiting the following s/sx of withdrawal during shift: tremors that can be felt, mild diaphoresis, increased anxiety, increased agitation, depression, difficulty concentrating, emotional volatility, generalized discomfort, and increased emotional amplitude, last CIWA score of: 11. Encouraged utilization of non pharmacological interventions as needed. Encouraged to attend group therapies/sessions to learn new coping skills to prevent relapsed, denies SI/HI. Safety measures in place, patient endorsed to shift leader nurse, all pertinent information was discussed.
--- NOTE | 2018-08-23 19:30 | NUR ---
Start of Shift Patient Received. Per endorsement patient continues on a modified Valium taper. Patient has been noted to be withdrawn to room and non compliant with group and social activities. Patient received. PRN Clonidine and Afrin with medications noted to be effective. Last noted CIWA 11. Upon rounds, patient is noted in bed, watching TV, in a dark room. Patient is noted to be restless and avoids eye contact. Reviewed scheduled medications with patient and he verbalized understanding. All needs attended to promptly. Will continue to monitor.
--- NOTE | 2018-08-23 20:00 | NUR ---
CIWA Assessment Patient is noted verbalizing increased anxiety, restlessness, agitation, intermittent chills and sweats, tremulous to touch, and light sensitivity. Will administer routine medications as ordered.
[2018-08-23 20:04] VITALS: BP 112/74
--- NOTE | 2018-08-24 00:22 | NUR ---
CIWA and Vitals Patient is noted in bed with eyes closed. Breathing even and non labored. Patient refused vitals. CIWA noted able to be completed as per order. Will continue to monitor.
--- NOTE | 2018-08-24 04:00 | NUR ---
Vitals and CIWA Patient is noted in bed with eyes closed. Breathing even and non labored. no signs of restlessness or facial grimacing noted. Vitals refused. CIWA not able to be completed as per order. Will continue to monitor.
[2018-08-24] MEDS: OXYMETAZOLINE NASAL 0.05% 15 ML SPRAY NS PRN ×2 (04:51→14:20)
--- NOTE | 2018-08-24 04:51 | NUR ---
Afrin PRN Administration Pt requested nasal spray for rhinitis. Afrin administered - 2 sprays in each nostrils as ordered. Safety measures in place, will continue to monitor.
--- NOTE | 2018-08-24 07:01 | NUR ---
End of Shift Patient is in bed with eyes closed. Breathing even and non labored. Patient continues on a modified Valium taper. Patient has been noted to be isolative to room and non compliant with group and social activities. Patient received PRN Afrin with medication noted to be effective. Last noted CIWA 13. Patient noted to sleep a total of 7 hours. All needs attended to promptly. Will endorse to continue plan of care as ordered.
--- NOTE | 2018-08-24 07:31 | NUR ---
BEGINNING OF SHIFT Patient endorsement report received from slot shift supervisor nurse, all pertinent information was discussed. Patient is scheduled to begin day 3 of 5 day valium taper as ordered. Per slot shift supervisor Received PRN: Afrin nasal spray x1. Slept for 7 hours. Last CIWA score of: 7. Patient received awake, alert and oriented x4, educated regarding plan of care for the day and medication regimen, with good verbal understanding. Safety measures are in place. call light kept with in reach, will continue to monitor.
--- NOTE | 2018-08-24 09:10 | NUR ---
CIWA ASSESSMENT Patient was noted exhibiting the following s/sx of withdrawal during shift: tremors that can be felt, mild diaphoresis, anxiety, agitation, depression, difficulty concentrating, emotional volatility, generalized discomfort, and increased emotional amplitude, last CIWA score of: 11. Will continue to monitor.
[2018-08-24] MEDS: FOLIC ACID 1 MG TABLET PO SCH (09:15)
[2018-08-24] MEDS: THIAMINE HCL 100 MG TABLET PO SCH (09:15)
[2018-08-24] MEDS: DIAZEPAM 5 MG TABLET PO SCH ×3 (09:15→20:39)
[2018-08-24] MEDS: MULTIVITAMINS,THERAPEUTIC TABLET PO SCH (09:15)
[2018-08-24] MEDS: CARVEDILOL 12.5 MG TABLET PO SCH ×2 (09:16→16:44)
[2018-08-24 09:19] VITALS: BP 144/94
--- NOTE | 2018-08-24 13:00 | NUR ---
CIWA ASSESSMENT continues to present with the following s/sx of withdrawal during shift: tremors that can be felt, mild diaphoresis, anxiety, agitation, depression, difficulty concentrating, emotional volatility, generalized discomfort, and increased emotional amplitude, last CIWA score of: 11
[2018-08-24 13:04] VITALS: BP 142/96
--- NOTE | 2018-08-24 15:50 | NUR ---
CONSENT FOR PNA/FLU VACCINE Patient declined vaccines, verbalized he received influenza in July of 2018, declined Pneumo-vaccine. Education provided.
[2018-08-24 16:44] VITALS: BP 144/94
--- NOTE | 2018-08-24 17:16 | NUR ---
CIWA ASSESSMENT Still noted presenting with:tremors that can be felt, mild diaphoresis, anxiety, agitation, depression, difficulty concentrating, emotional volatility, generalized discomfort, and increased emotional amplitude, current CIWA score of: 11
--- NOTE | 2018-08-24 18:57 | NUR ---
END OF SHIFT Patient alert and oriented x4, under close observation. Continues with ongoing Valium taper as ordered. At times patient noted easily overwhelmed with poor eye contact. Noted at times with agitated affect. Has an anxious/agitated mood. Encouraged to socialize with peers and participate in activities, also encouraged utilization of non pharmacological interventions. During shift patient presented with the following s/sx of withdrawal during shift: tremors that can be felt, mild diaphoresis, anxiety, agitation, depression, difficulty concentrating, emotional volatility, generalized discomfort, and increased emotional amplitude, last CIWA score of: 11. Safety measures in place, patient endorsed to motor vehicle technician nurse, all pertinent information was discussed.
[2018-08-24 20:00] VITALS: BP 142/91
--- NOTE | 2018-08-24 20:00 | NUR ---
Start of Shift Patient noted with healing abrasion on left side of face, patient stated that it was due to fall when he was intoxicated with alcohol prior to admission. Patient verbalized that he feels anxious due to a rough phone call earlier during the day. Patient also noted to be easily agitated. Patient appears disheveled and appears melancholic. To continue with Valium taper. Fall, universal, seizure and safety prec in place. Call light within reach. Latest CIWA=10. Will continue to monitor.
[2018-08-24] MEDS: CLONIDINE HCL 0.1 MG TABLET PO PRN (20:39)
--- NOTE | 2018-08-24 20:40 | NUR ---
PRN Clonidine Patient c/o increasing anxiety, citing "rough phone call" that happened during the day. Administered Clonidine 0.1 mg PO PRN. Will reassess.
--- NOTE | 2018-08-24 21:38 | NUR ---
Clonidine reassess Patient appears less anxious and he verbalized "feeling better".
[2018-08-25] VITALS: BP 135/82
--- NOTE | 2018-08-25 | NUR ---
CIWA=10 Patient with intermittent anxiety and continues to have tremors. Patient observed to be in depressed mood.
[2018-08-25 04:00] VITALS: BP 132/79
--- NOTE | 2018-08-25 04:00 | NUR ---
CIWA=8 Patient verbalized being less anxious but continues to have tremors and intermittent nausea. Patient continues to be in depressed mood and is disheveled.
--- NOTE | 2018-08-25 07:15 | NUR ---
End of Shift Patient verbalized having episodes of anxiety and is melancholic. Patient noted to be isolative and suspicious at times. Patient continues to be disheveled, encouraged to take a shower today. Patient was given Clonidine PRN during the shift. Fall, universal, seizure and safety prec in place. Call light within reach. Latest CIWA=8. Endorsed to AM shift nurse for continuity of care.
--- NOTE | 2018-08-25 07:30 | NUR ---
START OF SHIFT NOTE Received report from night nurse, 38 year old male admitted for ETOH withdrawal and patient continues with Valium taper tolerating well. Per endorsement patient received PRN Clonidine slept for 8 hours, last CIWA-8. Received patient asleep responsive to verbal and tactile stimuli. Breathing normal no SOB noted. Skin intact warm and dry to touch. All safety measures in place, call light within reach. Will cont with plan of care.
[2018-08-25 08:00] VITALS: BP 115/82
[2018-08-25] MEDS: FOLIC ACID 1 MG TABLET PO SCH (08:24)
[2018-08-25] MEDS: MULTIVITAMINS,THERAPEUTIC TABLET PO SCH (08:24)
[2018-08-25] MEDS: THIAMINE HCL 100 MG TABLET PO SCH (08:24)
--- NOTE | 2018-08-25 08:24 | NUR ---
CIWA ASSESSMENT CIWA-10, Patient presented with disheveled appearance, anxious, agitated, restless, fatigue, anhedonia, sweats, bilateral hand tremors noted. Patient was given his scheduled medications. Will cont to monitor.
[2018-08-25] MEDS: CARVEDILOL 12.5 MG TABLET PO SCH ×2 (08:25→16:39)
[2018-08-25] MEDS ORDERED: DIAZEPAM 5 MG TABLET PO SCH (09:00)
[2018-08-25 12:00] VITALS: BP 148/98
--- NOTE | 2018-08-25 12:00 | NUR ---
CIWA ASSESSMENT Patient continues to exhibited s/s of withdrawal such as anxiety, agitation, restless, fatigue, sweats,light headed, bilateral hand tremors noted. CIWA score noted-11. Will cont to monitor.
[2018-08-25 16:00] VITALS: BP 139/94
[2018-08-25] MEDS: CLONIDINE HCL 0.1 MG TABLET PO PRN (16:39)
--- NOTE | 2018-08-25 16:41 | NUR ---
PRN Clonidine 0.1mg PO given for c/o increased anxiety, BP 139/94
--- NOTE | 2018-08-25 17:41 | NUR ---
CLONIDINE REASSESSMENT Per patient Clonidine was effective feeling less anxious.
--- NOTE | 2018-08-25 19:08 | NUR ---
END OF SHIFT NOTE Gave report to night nurse, 38 year old male admitted for ETOH withdrawal and continues with his Valium taper tolerating well. Patient presented with disheveled appearance, anhedonia, dysphoria, flat and depressed mood. Patient withdrawal symptoms include sweats, anxiety, agitation, restless, bilateral hand tremors, light headed. Patient was given his last schedule dose of Valium taper and received PRN Clonidine for anxiety noted to be effective. Patient attended groups activities. Encourage PO fluids as tolerated. Patient denies any SI/HI. All needs attended and met. Last CIWA score was 13 at 1600. All safety measures in place. Endorse patient to night nurse in stable condition.
--- NOTE | 2018-08-25 19:30 | NUR ---
START OF SHIFT Pt is a 38 year old male admitted for ETOH withdrawal.Pt has and completed his Valium taper and is scheduled for discharge in the morning.Pt presented with anxiety and restlessness, PRN Clonidine was given per day shift, noted to be effective. Last CIWA score was 13 at 1600. All safety measures in place, call light is within reach,Will continue to monitor for safety.
[2018-08-25 20:00] VITALS: BP 122/76
--- NOTE | 2018-08-25 20:30 | NUR ---
PRN Trazodone given as ordered fo c/o insomnia,will monitor for effectiveness.
[2018-08-25] MEDS: OXYMETAZOLINE NASAL 0.05% 15 ML SPRAY NS PRN (21:14)
--- NOTE | 2018-08-25 21:30 | NUR ---
PRN REASSESSMENT Pt is calm and resting in bed with eyes closed.
--- NOTE | 2018-08-26 | NUR ---
CIWA DEFERRED Pt is sleeping comfortably in his bed; breathing is even and non labored; no s/s of distress noted;ciwa deferred due to pt beig asleep; v/s refused; will continue to monitor.
--- NOTE | 2018-08-26 06:36 | NUR ---
END OF SHIFT Pt is a 38 year old male admitted for ETOH withdrawal.Pt has and completed his Valium taper and is scheduled for discharge this morning.Pt presented with anxiety, restlessness and c/o insomnia. PRN Trazodone and nasal spray were given and noted to be effective. Last CIWA score was 9 at 1999. Pt slept 8 hours,fluid intake was 355 ml,voided x 2,no b/m reported. All safety measures in place, call light is within reach,Will continue to monitor for safety.
--- NOTE | 2018-08-26 07:37 | NUR ---
START OF SHIFT NOTE Received report from night nurse, 38 year old male admitted for ETOH withdrawal and completed his Valium taper tolerated well. Per endorsement patient received PRN Trazodone, nasal spray, slept for 8 hours, last CIWA-9. Received patient alert awake oriented x4. Breathing normal no SOB noted. Skin intact warm and dry to touch. Patient set for discharge today. All safety measures in place, call light within reach. Will cont with plan of care.
[2018-08-26 08:00] VITALS: BP 103/68
[2018-08-26 08:35] VITALS: BP 103/68
[2018-08-26] MEDS: MULTIVITAMINS,THERAPEUTIC TABLET PO SCH (08:35)
[2018-08-26] MEDS: THIAMINE HCL 100 MG TABLET PO SCH (08:35)
[2018-08-26] MEDS: CARVEDILOL 12.5 MG TABLET PO SCH (08:35)
[2018-08-26] MEDS: FOLIC ACID 1 MG TABLET PO SCH (08:35)
[2018-08-26] MEDS ORDERED: DIAZEPAM 5 MG TABLET PO SCH (09:00)
--- NOTE | 2018-08-26 09:57 | NUR ---
DISCHARGE NOTE Patient is alert awake oriented discharge from [facility] in stable condition. Vital signs WNL. Skin intact warm and dry to touch. Patient denies any SI/HI. All discharge paper work completed signed and dated. All belongings returned to the patient including his home medication and prescriptions. Patient discharge from [facility] to home in stable condition
== END 2018-08-26 09:57 | disposition home or self-care (01) | DRG 895 ==
LOC: SRC 20:59
PROVIDERS: ADMIT Family Medicine Addiction Medicine; ATTEND Family Medicine Addiction Medicine
PROC: HZ2ZZZZ Detoxification Services for Substance Abuse Treatment (ICD-10-PCS; principal; 2018-08-21)
PROC: HZ31ZZZ Individual Counseling for Substance Abuse Treatment, Behavioral (ICD-10-PCS; 2018-08-23)
PROC: HZ41ZZZ Group Counseling for Substance Abuse Treatment, Behavioral (ICD-10-PCS; 2018-08-23)
DX: F10.230 Alcohol dependence with withdrawal, uncomplicated (principal); Y90.8 Blood alcohol level of 240 mg/100 ml or more; F17.210 Nicotine dependence, cigarettes, uncomplicated; S00.83XA Contusion of other part of head, initial encounter; W10.8XXA Fall (on) (from) other stairs and steps, initial encounter; Y92.008 Other place in unspecified non-institutional (private) residence as the place of occurrence of the external cause; I10 Essential (primary) hypertension; F41.1 Generalized anxiety disorder; F32.9 Major depressive disorder, single episode, unspecified; J31.0 Chronic rhinitis
CPT/HCPCS: 36415; 70030-TC; 80307; 83690; 83735; 84443; 85025; 86580; 86592; 86705; 86803; 87340; 87806; A4663; G0480